=== PATIENT | male | born 1995 | race American Indian/Alaskan Native ===

== ENCOUNTER 2018-04-23 21:26 | Emergency (ER) | payer SELFPAY ==
[2018-04-23 22:01] VITALS: BP 111/64
== END 2018-04-24 06:00 | disposition left against medical advice (07) ==
LOC: ED 21:26
DX: S51.812A Laceration without foreign body of left forearm, initial encounter (principal); Z53.21 Procedure and treatment not carried out due to patient leaving prior to being seen by health care provider; X58.XXXA Exposure to other specified factors, initial encounter; Y93.89 Activity, other specified; Y92.89 Other specified places as the place of occurrence of the external cause; Y99.8 Other external cause status